=== PATIENT | female | born 1955 | race Caucasian/White ===

== ENCOUNTER → 2016-09-13 16:34 | Outpatient (CLI) | payer MEDICARE, MEDICAID ==
[2015-06-09 13:55] VITALS: BMI 49.3
[~2016-09-13 16:34] MED LIST: ADIPEX-P37.5 MG; ADIPEX-P37.5 MG PO; BACLOFEN10 MG PO; BUMEX2 MG PO; COZAAR50 MG PO; GLUCOPHAGE500 MG PO; HYDROCODONE-APA1 TAB PO; KLOR-CON 1010 MEQ PO; NEXIUM40 MG PO; OXYBUTYNIN CHLOR5 MG PO; PROZAC20 MG PO; VALIUM10 MG PO; ZOCOR20 MG PO
== END | disposition home or self-care (01) ==
LOC: D.MAMMO 13:15
DX: Z12.31 Encounter for screening mammogram for malignant neoplasm of breast (principal)

== ENCOUNTER → 2016-10-30 12:25 | Outpatient (CLI) | payer MEDICARE, MEDICAID ==
[2015-06-09 13:55] VITALS: BMI 49.3
[2016-10-30 13:57] LABS: CREATININE - URINE 105.3 mg/dL (30-125); PRO/CRE RATIO URINE 0.1 mg/g; PROTEIN - URINE 15.7 mg/dL (0.0-11.9)
[2016-10-30 14:13] LABS: CHOL - HDL RATIO 2.9 ratio (2.3-4.1); COMPLEMENT C4 26.5 mg/dL (17.4-52.2); LDL-HDL RATIO 1.2 ratio (1.5-3.5)
[2016-10-30 14:54] LABS: ERYTHROCYTE SEDIMENTATION RATE 40 mm/hr (0-30)
[2016-10-31 16:12] LABS: SPE - ALBUMIN 3.2 g/dL (2.9-4.4); SPE - ALPHA-1 GLOBULIN 0.2 g/dL (0.0-0.4); SPE - ALPHA-2 GLOBULIN 1.1 g/dL (0.4-1.0); SPE - M-SPIKE Not Observed g/dL (Not Observed); SPE - TOTAL PROTEIN 6.5 g/dL (6.0-8.5)
[2016-11-01 16:13] LABS: ANCA - ANTIMYELOPEROXIDASE <9.0 U/mL (0.0-9.0); ANCA - ANTIPROTEINASE 3 <3.5 U/mL (0.0-3.5); ANCA - ATYPICAL <1:20 titer (Neg:<1:20); ANCA - CYTOPLASMIC <1:20 titer (Neg:<1:20); ANCA - PERINUCLEAR <1:20 titer (Neg:<1:20)
== END | disposition home or self-care (01) ==
LOC: D.US 12:25
PROVIDERS: Internal Medicine Cardiovascular Disease
DX: I10 Essential (primary) hypertension (principal); R60.9 Edema, unspecified

== ENCOUNTER 2017-10-06 19:46 | Emergency (ER) | payer MEDICARE, MEDICAID ==
[2015-06-09 13:55] VITALS: BMI 49.3
== END 2017-10-06 21:00 | disposition home or self-care (01) ==
LOC: D.ER 19:46
DX: S80.862A Insect bite (nonvenomous), left lower leg, initial encounter (principal); W57.XXXA Bitten or stung by nonvenomous insect and other nonvenomous arthropods, initial encounter; Y93.89 Activity, other specified; Y92.89 Other specified places as the place of occurrence of the external cause; I10 Essential (primary) hypertension; E11.9 Type 2 diabetes mellitus without complications

== ENCOUNTER 2018-02-16 20:39 | Emergency (ER) | payer MEDICARE, MEDICAID ==
[~2018-02-16] VITALS: Ht 168.9 cm; Wt 138.2 kg
[2018-02-16 20:41] VITALS: Ht 168.9 cm; Wt 138.2 kg
[2018-02-16] MEDS ORDERED: LEXAPRO10 MG PO (20:44)
[2018-02-16] MEDS ORDERED: TRIMETHOPRIM100 MG PO (20:45)
[2018-02-16 22:08] VITALS: BP 147/48
== END 2018-02-16 22:23 | disposition home or self-care (01) ==
LOC: D.ER 20:39
DX: S93.402A Sprain of unspecified ligament of left ankle, initial encounter (principal); X50.1XXA Overexertion from prolonged static or awkward postures, initial encounter; Y93.89 Activity, other specified; Y92.019 Unspecified place in single-family (private) house as the place of occurrence of the external cause; E11.9 Type 2 diabetes mellitus without complications; I10 Essential (primary) hypertension

== ENCOUNTER 2019-01-24 19:59 | Observation (INO) | payer MEDICARE, MEDICAID ==
[~2019-01-24] VITALS: Ht 168.9 cm; Wt 137.5 kg
[~2019-01-24 19:59] MED LIST changes: +LEXAPRO10 MG PO; +TRIMETHOPRIM100 MG PO
[2019-01-24 20:10] VITALS: BP 123/47
[2019-01-24 20:51] LABS: BASOPHILS 0.1 % (0-2); EOSINOPHILS 2.9 % (0-7); HEMATOCRIT 38.9 % (36.0-48.0); HEMOGLOBIN 11.7 g/dL (12-16); IMMATURE GRANULOCYTES 0.1 % (0-5); LYMPHOCYTES 35.3 % (15-50); MCH 25.3 pg (26.0-34.0); MCHC 30.1 g/dL (31.0-37.0); MCV 84.2 fL (80.0-100.0); MEAN PLATELET VOLUME 10.8 fL (7.4-10.4); MONOCYTES 6.3 % (2-11); NEUTROPHILS 55.3 % (40-80); PLATELET COUNT 235 10x3/uL (130-400); RBC 4.62 10x6/uL (4.00-5.40); WBC 8.2 10x3/uL (4.8-10.8)
[2019-01-24 21:12] LABS: APTT 28.1 SECONDS (22.8-39.4); INR 0.99 (0.85-1.17); PROTIME 12.6 SECONDS (11.6-15.0)
[2019-01-24 21:15] LABS: ALKALINE PHOSPHATASE 75 U/L (46-116); ALT (SGPT) 20 U/L (10-68); BILIRUBIN - TOTAL 0.31 mg/dL (0.2-1.3); CALC OSMOLALITY 288 mosm/kg (275-300); CALCIUM 8.7 mg/dL (8.5-10.1); CARBON DIOXIDE 28.1 mmol/L (21.0-32.0); CHLORIDE - SERUM 105 mmol/L (98-107); GLUCOSE 111 mg/dL (74-106); POTASSIUM - SERUM 3.8 mmol/L (3.5-5.1); PROTEIN - SERUM 6.9 g/dL (6.4-8.2); SODIUM 142 mmol/L (136-145); UREA NITROGEN 26 mg/dL (7-18); eGFR NON AFRICAN AMERICAN 59 mL/min (90-120)
[2019-01-24 21:27] LABS: CKMB 0.2 U/L (0.0-3.6); CREATINE KINASE 36 UL (21-215); MAGNESIUM - SERUM 1.6 mg/dL (1.8-2.4); TROPONIN-I < 0.017 ng/mL (0.000-0.060)
--- NOTE | 2019-01-24 21:40 | NUR ---
PT TO RADIOLOGY.
--- NOTE | 2019-01-24 22:01 | NUR ---
PT RETURNED FROM RADIOLOGY.
[2019-01-24] MEDS ORDERED: QUESTRAN LIG1 PACKET PO (23:14)
[2019-01-24] MEDS ORDERED: EDARBI40 MG PO (23:15)
[2019-01-24] MEDS ORDERED: NEXIUM40 MG PO (23:15)
--- NOTE | 2019-01-24 23:15 | NUR ---
RECEIVED FROM ER, PT IS A&O x4, IV-L.HAND- NS BOLUS INFUSING AND MAG, PROVIDE A SANDWICH AND WATER, MEDS AND HISTORY COMPLETE, PLACE TELEMTRY ON, PLACED ON FALL PRECATION, BED IS LOW, SRX2, CALL LIGHT IN REACH, WILL CONTINUE PLAN OF CARE
[2019-01-24] MEDS ORDERED: ZOCOR10 MG PO (23:33)
--- NOTE | 2019-01-25 02:53 | NUR ---
I have reviewed this patient and I concur with the Shift Assessment completed by the Licensed Practical Nurse today this shift.
[2019-01-25 03:20] VITALS: BP 118/53; BMI 48.2
--- NOTE | 2019-01-25 03:39 | NUR ---
ADMISSION ASSESSMENT COMPLETED. PT RESTING. SR PER TELEMETRY. NO DISTRESS.
[2019-01-25 04:00] VITALS: BP 98/40
[2019-01-25 08:00] VITALS: BP 119/43
--- NOTE | 2019-01-25 09:35 | NUR ---
PT RESTING IN BED, SHIFT ASSESSMENT PERFORMED. CALL LIGHT WITHIN REACH, DENIES ANY NEEDS AT THIS TIME, WILL CONT TO FOLLOW POC
[2019-01-25 12:00] VITALS: BP 107/74
--- NOTE | 2019-01-25 12:30 | NUR ---
PT RESTING IN BED. DENIES ANY NEEDS AT THIS TIME, WILL CONT TO FOLLOW POC.
[2019-01-25 13:25] VITALS: BMI 48.1
[2019-01-25 14:22] LABS: CKMB 0.3 U/L (0.0-3.6); CREATINE KINASE 39 UL (21-215)
[2019-01-25 14:25] LABS: TROPONIN-I < 0.017 ng/mL (0.000-0.060)
--- NOTE | 2019-01-25 15:01 | NUR ---
ORTHOSTATIC BP: LYING 118/46 SITTING 124/64 STANDING 143/78
[2019-01-25 16:30] VITALS: BP 135/55
[2019-01-25 19:50] LABS: CKMB 0.4 U/L (0.0-3.6); CREATINE KINASE 44 UL (21-215)
[2019-01-25 19:51] LABS: TROPONIN-I < 0.017 ng/mL (0.000-0.060)
--- NOTE | 2019-01-25 20:01 | NUR ---
EVENING ROUNDS COMPLETED. REPORT RECEIVED. PT SITTING UP IN BED WITH EYES OPEN, RR EVEN AND UNLABORED. BED IN LOW POSITION. NO S/S OF DISTRESS NOTED. INTRODUCED SELF TO PT. PT ANSWERS QUESTIONS APPROPRIATELY AND DENIES FURTHER NEEDS AT THIS TIME. CALL LIGHT IN REACH. WILL CTM.
[2019-01-25 20:18] VITALS: BP 103/42
--- NOTE | 2019-01-25 22:05 | NUR ---
ADMINISTERED ORDERED ANALGESIC FOR PT COMPLAINTS OF PAIN IN LOWER LEGS, PT STATES PAIN OF A 6 ON A SCALE OF 0-10. WILL CTM.
[2019-01-26] VITALS (7 sets, daily range): BP systolic 120–156; BP diastolic 44–68
--- NOTE | 2019-01-26 00:21 | NUR ---
I have reviewed this patient and I concur with the Shift Assessment completed by the Licensed Practical Nurse today this shift.
--- NOTE | 2019-01-26 00:59 | NUR ---
ORDERED ECG PERFORMED AND PLACED ON CHART.
[2019-01-26 02:07] LABS: CREATINE KINASE 55 UL (21-215); TROPONIN-I < 0.017 ng/mL (0.000-0.060)
--- NOTE | 2019-01-26 08:30 | NUR ---
PT RESTING IN BED, SHIFT ASSESSMENT PERFORMED. DENIES ANY NEEDS AT THIS TIME, WILL CONT TO FOLLOW POC
--- NOTE | 2019-01-26 12:45 | NUR ---
PT C/O OF THE BED HURTING. PROVIDED PT WITH PINK EGG CRATE MATTRESS. DENIES ANY FURTHER NEEDS AT THIS TIME. WILL CONT TO FOLLOW POC
[2019-01-26 16:48] LABS: BASOPHILS 0.2 % (0-2); EOSINOPHILS 2.4 % (0-7); HEMATOCRIT 35.9 % (36.0-48.0); HEMOGLOBIN 10.3 g/dL (12-16); IMMATURE GRANULOCYTES 0.2 % (0-5); LYMPHOCYTES 42.8 % (15-50); MCH 25.1 pg (26.0-34.0); MCHC 28.7 g/dL (31.0-37.0); MEAN PLATELET VOLUME 11.9 fL (7.4-10.4); MONOCYTES 8.9 % (2-11); NEUTROPHILS 45.5 % (40-80); PLATELET COUNT 202 10x3/uL (130-400); RBC 4.11 10x6/uL (4.00-5.40); RDW 16.4 % (11.5-14.5)
[2019-01-26 16:49] LABS: MCV 87.3 fL (80.0-100.0)
[2019-01-26 17:09] LABS: ANION GAP 10.9 mmol/L (8-16); CALCIUM 8.2 mg/dL (8.5-10.1); CARBON DIOXIDE 30.4 mmol/L (21.0-32.0); CREATININE - SERUM 0.9 mg/dL (0.6-1.3); POTASSIUM - SERUM 4.3 mmol/L (3.5-5.1)
--- NOTE | 2019-01-26 18:16 | NUR ---
PT RESTING IN BED, FAMILY AT BEDSIDE, DENIES ANY NEEDS AT THIS TIME. WILL CONT TO FOLLOW POC
--- NOTE | 2019-01-26 20:04 | NUR ---
EVENING ROUNDS COMPLETED. REPORT RECEIVED. PT SITTING UP IN BED WITH EYES OPEN, RR EVEN AND UNLABORED. INTRODUCED SELF TO PT. PT DENIES FURTHER NEEDS AT THIS TIME. 79 SINUS ON TELEMTRY. NO S/S OF DISTRESS. CALL LIGHT IN REACH. WILL CTM,.
--- NOTE | 2019-01-27 01:43 | NUR ---
I have reviewed this patient and I concur with the Shift Assessment completed by the Licensed Practical Nurse today this shift.
[2019-01-27 03:45] VITALS: BP 136/51
[2019-01-27 06:28] LABS: BASOPHILS 0.2 % (0-2); CALCIUM 8.3 mg/dL (8.5-10.1); CARBON DIOXIDE 31.9 mmol/L (21.0-32.0); CHLORIDE - SERUM 106 mmol/L (98-107); EOSINOPHILS 4.2 % (0-7); GLUCOSE 116 mg/dL (74-106); HEMATOCRIT 33.6 % (36.0-48.0); IMMATURE GRANULOCYTES 0.2 % (0-5); LYMPHOCYTES 45.1 % (15-50); MAGNESIUM - SERUM 1.9 mg/dL (1.8-2.4); MCH 25.3 pg (26.0-34.0); MCHC 29.8 g/dL (31.0-37.0); MEAN PLATELET VOLUME 10.8 fL (7.4-10.4); NEUTROPHILS 42.3 % (40-80); PLATELET COUNT 196 10x3/uL (130-400); POTASSIUM - SERUM 3.8 mmol/L (3.5-5.1); RBC 3.96 10x6/uL (4.00-5.40); RDW 15.8 % (11.5-14.5); SODIUM 142 mmol/L (136-145); WBC 4.5 10x3/uL (4.8-10.8)
[2019-01-27 06:33] LABS: CALC OSMOLALITY 285 mosm/kg (275-300); CREATININE - SERUM 0.6 mg/dL (0.6-1.3); UREA NITROGEN 17 mg/dL (7-18); eGFR NON AFRICAN AMERICAN > 90 mL/min (90-120)
[2019-01-27 06:53] LABS: MCV 84.8 fL (80.0-100.0)
--- NOTE | 2019-01-27 07:28 | NUR ---
ALERT AND ORIENTED X 3. LUNGS CLEAR BILATERALLY IN ALL MEDELLIN. HEART SOUNDS S1 AND S2 HEARD IN ALL MEDELLIN. TELEMETRY IN PLACE. BOWEL SOUNDS ACTIVE X 4. SKIN INTACT WITHOUT REDNESS. IV TO LEFT HAND PATENT WITHOUT REDNESS. DENIES PAIN. DENIES NEEDS. BED LOW. CALL STAHL AND PERSONAL ITEMS IN REACH. WILL CONTINUE TO MONITOR.
[2019-01-27 07:55] VITALS: BP 128/41
--- NOTE | 2019-01-27 08:43 | NUR ---
MEDICATIONS GIVEN WITHOUT DIFFICULTY. NOTIFIED OF NEW ORDER FOR PATIENT'S HOME MEDICATION. STATES DAUGHTER WILL BRING MED. DENIES FURTHER NEEDS.
--- NOTE | 2019-01-27 10:07 | EC ---
PATIENT:CRISTIAN RBOERT DATE OF SERVICE: 01/24/19 SEX: F MEDICAL RECORD: [id number] DATE OF : 55 LOCATION:D.M2 D.213 AGE OF PATIENT: 64 ADMISSION DATE: 01/24/19 REFERRING PHYSICIAN: INTERPRETING PHYSICIAN: CHAZ SANCHES MD ECHOCARDIOGRAM REPORT ECHO CHARGES 4 ECHO COMPLETE Date: 01/25/19 CLINICAL DIAGNOSIS: SYNCOPE ECHOCARDIOGRAPHIC MEASUREMENTS (adult normal given) AC root (d.<3.7cm) 3.0 cm LV Septum d (<1.2 cm> 1.3 cm Valve Excursion 1.7 cm LV Septum (systole) 1.6 cm Left Atria (s.<4.0cm> 3.7 cm LVPW d(<1.2cm) 1.7 cm RV (d.<2.3cm) 3.5 cm LVPW (sytole) 1.8 cm LV diastole(<5.6CM) 5.2 cm MV E-F(>70mm/sec) cm LV systole 3.4 cm LVOT Diameter 1.5 cm MV exc.(>10mm) 1.2 cm Est.ejection fraction (50-75%) % DOPPLER: LVIT cm/sec A 81.0 cm/sec E 70.0 cm/sec LA cm/sec RVSP 28 mmHg LVOT 107 cm/sec AOP1/2T m/s Asc. 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 Rodriguez TAPE# PACS Pericardial Effusion N DATE OF SERVICE: Borderline LVH. LV internal dimensions are normal. Wall motion is normal. EF is 55%. Aortic valve sclerosis without stenosis by Doppler interrogation. Left atrium is normal at 3.7 cm. Mitral valve shows no prolapse. Trace MR. Right-sided chambers are grossly normal. Trace TR. TRANSINT:[id number] Voice Confirmation ID: [id number] DOCUMENT ID: [id number] ECHOCARDIOGRAM REPORT [id number] ROBERTCRISTIAN CASIANO CHAZ SANCHES MD at 1007 CC: [id number] DICTATION DATE: 01/26/19 0958 MARKETING INTELLIGENCE MANAGER: 01/26/19 1646 ADM IN [facility] [address] [id number]
--- NOTE | 2019-01-27 10:07 | CN ---
PATIENT NAME:CRISTIAN ROBERT MEDICAL RECORD: [id number] : 55 LOCATION:D. D.2133 ADMIT DATE: 01/24/19 ACCOUNT: [id number] CONSULTING PHYSICIAN: CHAZ SANCHES MD REFERRING PHYSICIAN: LAITH ANNE MD DATE OF CONSULTATION: 01/26/2019 HISTORY OF PRESENT ILLNESS: A 64-year-old female with no known history of coronary artery disease, who was at a graduation event and had syncopal spell. She actually felt that she has overheated on the pavement. She was assisted by bystanders. She has a history of obstructive lung disease and is on chronic O2. She reports occasional orthostasis at baseline. We are asked to see her concerning cardiovascular status. MEDICATIONS: Typically, include Edarbi 40 mg p.o. daily, simvastatin 10 daily, Valium 10 b.i.d. p.r.n., Lexapro 10 mg p.o. daily, Waka 10/325 q. 4 p.r.n., Bumex 2 mg daily, and metformin 1 gram b.i.d. ALLERGIES: LISINOPRIL AND ASPIRIN. SOCIAL HISTORY: She is nonsmoker and nondrinker. Typically, she will take care of all her ADLs. REVIEW OF SYSTEMS: The patient reports easy bruising but reports no swollen glands. The patient reports no fever, no night sweats, no significant weight gain, no significant weight loss. No significant exercise tolerance. The patient reports no dry eyes, no irritation, no vision change. Patient reports no difficulty hearing and no ear pain. Patient reports no frequent nose bleeds or nose and sinus problems. Patient reports on arm pain on exertion. No shortness of breath while lying down. No history of heart murmur. Patient reports no cough, no wheezing or coughing up blood. Patient reports no abdominal pain, no vomiting. Normal appetite. No diarrhea and not vomiting blood. No nausea and no constipation. Patient reports no incontinence. No difficulty urinating. No hematuria. No increased frequency. Patient reports no muscle aches. No weakness, no arthralgias, no back pain. No swelling of the extremities. Patient reports no abnormal mole, no jaundice, no rashes. Reports no loss of consciousness. No weakness and no numbness. No seizures, dizziness, or headaches. The patient reports no depression, no sleep disturbance, feeling safe in a relationship and no alcohol abuse. Patient reports on fatigue. Reports no runny nose or sinus pressure. No itching, no hives, and no frequent sneezing. PHYSICAL EXAMINATION: GENERAL: Pleasant female, in no acute distress. VITAL SIGNS: Blood pressure 137/61. Pulse 61 and regular. HEENT: Normocephalic and atraumatic. NECK: No bruits are noted. HEART: Regular. LUNGS: Fair air excursion. Decreased breath sounds. ABDOMEN: Soft and nontender. EXTREMITIES: Pulses 2+. No edema. DIAGNOSTIC DATA: ECG without acute change. IMPRESSION: Syncopal episode. CONSULT REPORT [id number] CRISTIAN ROBERT X-ray was reviewed, this was normal. BUN is mildly elevated. Mild orthostatic symptomatology. She is at baseline at this point. I agree with current management. No contraindication for discharge from my standpoint. TRANSINT:[id number] Voice Confirmation ID: [id number] DOCUMENT ID: [id number] CHAZ SANCHES MD at 1007 CC: [id number] DICTATION DATE: 01/26/19 1003 CAPTAIN FISHING VESSEL: 01/26/19 1700 ADM IN [place] [id number] [place] [address]
--- NOTE | 2019-01-27 11:01 | NUR ---
REQUESTS MEDICATION FOR DIARRHEA. NO PRNS IN NOV. WILL SPEAK WITH PHYSICIAN. DENIES FURTHER NEEDS.
--- NOTE | 2019-01-27 11:15 | NUR ---
IV RESITED TO RFA PER STAFF. IV REMOVED FROM LEFT HAND WITH TIP INTACT.
--- NOTE | 2019-01-27 11:25 | NUR ---
SPOKE TO DAYNA NOYOLA ABOUT MEDICATION FOR PATIENT DIARRHEA. N/O FOR IMMODIUM Q6HR PRN.
[2019-01-27 12:06] VITALS: BP 118/54
--- NOTE | 2019-01-27 12:15 | NUR ---
BLOOD SUGAR 120. NO INSULIN GIVEN PER SS. LUNCH AT BEDSIDE. FAMILY AT BEDSIDE. DENIES NEEDS.
--- NOTE | 2019-01-27 14:01 | NUR ---
RESTING IN BED. DENIES NEEDS.
[2019-01-27 14:39] VITALS: Ht 168.9 cm; Wt 137.5 kg
--- NOTE | 2019-01-27 17:09 | NUR ---
DISCHARGE EDUCATION PROVIDED BOTH WRITTEN AND VERBAL. REQUESTED COPY OF MEDICAL RECORD SUMMARY. PROVIDED TO PATIENT. DENIES FURTHER QUESTIONS. IV REMOVED FROM RFA WITH TIP INTACT. DISCHARGED HOME WITH SISTER WITH ALL BELONGINGS.
--- NOTE | 2019-01-28 07:56 | MORECARE ---
CASE MANAGEMENT DISCHARGE SUMMARY PATIENT: CRISTIAN ROBERT UNIT: [id number] ADM DATE: 01/24/19 AGE: 64 : 55 SEX: F ROOM/BED: D.2133 AUTHOR: SYL GAYLE PHYSICIAN: REFERRING PHYSICIAN: LAITH ANNE MD DATE OF SERVICE: 01/28/19 Discharge Plan Patient Name: CRISTIAN ROBERT [facility] [facility] 1955 Planned Disposition: Home Anticipated Discharge Date: 01/27/19 Discharge Date: 01/27/2019 Expected LOS: 3 Initial Reviewer: [email or web address] Initial Review Date: 01/28/2019 Generated: 01/28/19 8:56 am Patient Name: CRISTIAN ROBERT Page [id number] at 0756 All edits/amendments must be made on the electronic document DICTATION DATE: 01/28/19 0756 MANUFACTURING ENGINEERING MANAGER: OSITO 01/28/19 0756 RPT#: [id number] DC DATE:01/27/19 STATUS: DIS IN [facility] [address] [place] [address] END OF REPORT
== END 2019-01-27 17:33 | disposition home or self-care (01) ==
LOC: D.ER 19:59 → D.M2 21:32 → OBSVTIME 21:32 → D.M2 21:32
PROVIDERS: Emergency Medicine; Family Medicine; ADMIT Emergency Medicine; ATTEND Emergency Medicine
DX: R55 Syncope and collapse (principal); E11.65 Type 2 diabetes mellitus with hyperglycemia; I10 Essential (primary) hypertension; W05.0XXA Fall from non-moving wheelchair, initial encounter; J44.9 Chronic obstructive pulmonary disease, unspecified; J96.21 Acute and chronic respiratory failure with hypoxia; Z87.891 Personal history of nicotine dependence; I48.0 Paroxysmal atrial fibrillation

== ENCOUNTER 2019-02-25 11:00 | Outpatient (CLI) | payer MEDICARE, MEDICAID ==
[2019-01-27 14:39] VITALS: BMI 48.1
[~2019-02-25 11:00] MED LIST changes: +EDARBI40 MG PO; +QUESTRAN LIG1 PACKET PO; +ZOCOR10 MG PO
== END 2019-02-25 11:45 | disposition home or self-care (01) ==
LOC: D.MAMMO 11:00
PROVIDERS: ATTEND Family Medicine
DX: Z12.31 Encounter for screening mammogram for malignant neoplasm of breast (principal)